=== PATIENT | female | born 2005 | race Hispanic/Latino ===

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

== ENCOUNTER 2023-01-13 15:38 | Emergency (ER) | payer MEDICAID ==
[~2023-01-13] VITALS: Ht 167.6 cm; Wt 80.3 kg
[~2023-01-13 15:38] MED LIST: MACR100 PO; NIRM1TAB5 PO
[2023-01-13 16:25] LABS: APPEARANCE,URINE CLEAR (CLEAR); BILIRUBIN,URINE NEGATIVE (NEGATIVE); COLOR,URINE YELLOW (YELLOW); GLUCOSE, URINE (UA) NEGATIVE (NEGATIVE); KETONES,URINE NEGATIVE (NEGATIVE); LEUKOCYTE ESTERASE ,URINE NEGATIVE Leu/uL (NEGATIVE); NITRATE,URINE NEGATIVE (NEGATIVE); OCCULT BLOOD,URINE NEGATIVE (NEGATIVE); PROTEIN,URINE NEGATIVE (NEGATIVE); UROBILINOGEN,URINE 0.2 mg/dL (0.2-1.0)
[2023-01-13] MEDS ORDERED: KETOROLAC 30MG VIAL (30MG/ML) IM ONE (17:00)
[2023-01-13] MEDS ORDERED: NAPR-1180 PO (17:24)
[2023-01-13] MEDS ORDERED: CYCL-309 PO (17:24)
[2023-01-13 17:40] VITALS: BP 107/65
== END 2023-01-13 17:49 | disposition home or self-care (01) ==
LOC: EDH 15:38
DX: S39.012A Strain of muscle, fascia and tendon of lower back, initial encounter (principal); X58.XXXA Exposure to other specified factors, initial encounter; Y93.89 Activity, other specified; Y92.89 Other specified places as the place of occurrence of the external cause; Y99.8 Other external cause status
CPT/HCPCS: 99283; 81003; 81025; 36415; 96372; J1885

== ENCOUNTER 2023-08-05 13:20 | Emergency (ER) | payer MEDICAID, OTHER ==
[~2023-08-05] VITALS: Ht 167.6 cm; Wt 77.6 kg
[~2023-08-05 13:20] MED LIST changes: +CYCL-309 PO; +NAPR-1180 PO
[2023-08-05] MEDS ORDERED: ACETAMINOPHEN 500 MG TABLET PO ONE (14:00)
[2023-08-05 15:43] LABS: RAPID GROUP A STREP negative (NEGATIVE)
[2023-08-05 15:50] LABS: SARS-CoV-2, RNA, NAAT NEGATIVE SARS CoV-2 (NEGATIVE)
[2023-08-05 15:57] LABS: INFLUENZA TYPE B Negative For Type B (NEGATIVE)
[2023-08-05 16:03] LABS: INFLUENZA TYPE A Positive For Type A (NEGATIVE)
[2023-08-05] MEDS ORDERED: BENZ-39 PO (16:10)
[2023-08-05] MEDS ORDERED: OSEL75 PO (16:10)
[2023-08-05 16:20] VITALS: BP 122/74; PULSE 68; RESP 18; O2SAT 98
== END 2023-08-05 16:23 | disposition home or self-care (01) ==
LOC: EDH 13:20
DX: J10.1 Influenza due to other identified influenza virus with other respiratory manifestations (principal); Z20.822 Contact with and (suspected) exposure to COVID-19; Z79.899 Other long term (current) drug therapy
CPT/HCPCS: 99283; 87635; 87880; 87804 ×2; C9803

== ENCOUNTER 2023-08-20 20:04 | Emergency (ER) | payer OTHER ==
[~2023-08-20] VITALS: Ht 167.6 cm; Wt 76.7 kg
[~2023-08-20 20:04] MED LIST changes: +BENZ-39 PO; +OSEL75 PO
[2023-08-20 20:29] VITALS: BP 100/57; PULSE 81; RESP 18
[2023-08-20 21:18] LABS: ADD UA MICROSCOPIC YES; APPEARANCE,URINE CLEAR (CLEAR); BILIRUBIN,URINE NEGATIVE (NEGATIVE); COLOR,URINE LIGHT-YELLOW (YELLOW); GLUCOSE, URINE (UA) NEGATIVE (NEGATIVE); KETONES,URINE NEGATIVE (NEGATIVE); LEUKOCYTE ESTERASE ,URINE 250 Leu/uL (NEGATIVE); NITRATE,URINE NEGATIVE (NEGATIVE); OCCULT BLOOD,URINE NEGATIVE (NEGATIVE); PH,URINE 6.5 (5.0-8.0); PROTEIN,URINE NEGATIVE (NEGATIVE); UROBILINOGEN,URINE 0.2 mg/dL (0.2-1.0)
[2023-08-20 21:20] LABS: BACTERIA,URINE RARE /HPF (None Seen); MUCUS,URINE RARE LPF (None Seen); RBC,URINE 0-1 /HPF (0-1); SQUAMOUS EPITHELIAL CELL,UR FEW /HPF (0-2)
[2023-08-20] MEDS ORDERED: CEPH500B PO (21:42)
[2023-08-20] MEDS ORDERED: FLUCONAZOLE 100 MG TAB PO ONE (22:30)
== END 2023-08-20 22:34 | disposition home or self-care (01) ==
LOC: EDH 20:04
DX: B37.31 Acute candidiasis of vulva and vagina (principal); N39.0 Urinary tract infection, site not specified; Z79.899 Other long term (current) drug therapy
CPT/HCPCS: 81001; 81025; 87088

== ENCOUNTER 2023-09-18 09:29 | Emergency (ER) | payer MEDICAID, OTHER ==
[~2023-09-18] VITALS: Ht 167.6 cm; Wt 78.0 kg
[~2023-09-18 09:29] MED LIST changes: +CEPH500B PO
[2023-09-18 09:31] VITALS: BP 104/61; PULSE 83; RESP 20
[2023-09-18] MEDS ORDERED: AZITHROMYCIN 250 MG TABLET PO ONE (10:00)
[2023-09-18] MEDS ORDERED: CEFTRIAXONE 1G VIAL IM ONE (10:00)
[2023-09-18 10:09] LABS: APPEARANCE,URINE CLOUDY (CLEAR); BILIRUBIN,URINE NEGATIVE (NEGATIVE); COLOR,URINE YELLOW (YELLOW); GLUCOSE, URINE (UA) NEGATIVE (NEGATIVE); KETONES,URINE NEGATIVE (NEGATIVE); LEUKOCYTE ESTERASE ,URINE 500 Leu/uL (NEGATIVE); NITRATE,URINE NEGATIVE (NEGATIVE); OCCULT BLOOD,URINE SMALL (NEGATIVE); PH,URINE 5.5 (5.0-8.0); PROTEIN,URINE 30 mg/dL (NEGATIVE); UROBILINOGEN,URINE 0.2 mg/dL (0.2-1.0)
[2023-09-18 10:19] LABS: ADD UA MICROSCOPIC YES
[2023-09-18] MEDS ORDERED: DOXY-252 PO (10:26)
[2023-09-18 10:42] LABS: MUCUS,URINE MOD LPF (None Seen); SQUAMOUS EPITHELIAL CELL,UR MANY /HPF (0-2); WBC,URINE TNTC /HPF (0-1)
== END 2023-09-18 10:42 | disposition home or self-care (01) ==
LOC: EDH 09:29
DX: N39.0 Urinary tract infection, site not specified (principal); Z20.2 Contact with and (suspected) exposure to infections with a predominantly sexual mode of transmission
CPT/HCPCS: 99283; 87088; 87797; 87486; 81001; 81025; 96372; J0696